=== PATIENT | male | born 1990 | race Hispanic/Latino ===

== ENCOUNTER 2023-10-08 17:01 | Emergency (ER) | payer SELFPAY ==
[2023-10-08 17:09] VITALS: BP 133/91
[2023-10-08] MEDS: TYLENOL 1000 MG PO (17:21)
[2023-10-08 17:50] LABS: % Basophils 0.2 % (0-2); % Immature Granulocytes 0.5 % (0-0.5); % Monocytes 10.2 % (1.7-9.3); % Neutrophils 75.1 % (42.2-75.2); Absolute Lymphocytes 0.9 10^3/uL (1.2-3.4); Absolute Monocytes 0.7 10^3/uL (0.1-0.6); Hematocrit 46.9 % (39.0-52.0); Hemoglobin 16.5 g/dL (13.0-18.0); Mean Corp Hgb Conc. 35.2 g/dL (33.0-37.0); Mean Corpuscular Hgb 31.3 pg (27.0-31.0); Mean Platelet Volume 8.9 fL (7.4-10.4); Nucleated Red Blood Cells % 0 % (-); Platelet Count 205 10^3/uL (130-400); Red Blood Cell Count 5.27 10^6/uL (4.70-6.10); Red Cell Dist. Width 11.7 % (11.5-14.5); White Blood Cell Count 6.7 10^3/uL (4.8-10.8)
[2023-10-08 18:03] LABS: ALT (SGPT) 17 U/L (0-50); AST (SGOT) 21 U/L (17-59); Albumin 4.3 g/dl (3.5-5.0); Alkaline Phosphatase 69 U/L (38-126); Blood Urea Nitrogen 18 mg/dl (9-20); Calcium 9.3 mg/dl (8.4-10.2); Carbon Dioxide 25 mmol/L (22-30); Chloride 100 mmol/L (98-107); Glucose 103 mg/dl (70-99); Potassium 3.9 mmol/L (3.5-5.1); Sodium 136 mmol/L (135-145); Total Bilirubin 0.7 mg/dl (0.2-1.3); Total Protein 7.1 g/dl (6.3-8.2); eGFR > 60.00
[2023-10-08 18:16] LABS: COVID-19 Antigen Negative (Negative)
--- NOTE | 2023-10-08 19:42 | ED.GENMED ---
History of Present Illness
General
Chief Complaint: Fever
Source: patient
Exam Limitations: none
Time Seen by Provider: 10/08/23 18:12
Nursing documentation reviewed up to this point in time: agreed with
Travel History
Have you had any contact with someone who has COVID-19?: No
Do you have any symptoms of coronavirus? Fever > 100 degrees, chills, cough, shortness of breath, sore throat, loss of taste or smell, muscle aches, or headache?: Yes
Symptoms:: fever
History of Present Illness
History of Present Illness:
33 yo male states he started with cough, fever 3 days ago, also chest hurts when he coughs. No know sick contacts. Denies n/v/d/c.
Past History
Past History
ED Past Medical History: None
Social History
Tobacco: Non-smoker
Personal: Single
Living: with family
Review of Systems
Review of Systems
Allergies reviewed?: Yes
All Other Systems: ROS reviewed and negative except as documented in HPI and ROS
Constitutional: Reports fever and fatigue
EENT: Denies sore throat
Respiratory: Reports cough; Denies trouble breathing
Cardiac: Reports chest pain
ABD/GI: Denies abdominal pain, nausea, vomiting, diarrhea or anorexia
: Denies dysuria
Musculoskeletal: Reports no symptoms
Skin: Reports no symptoms
Neurological: Reports no symptoms
Phy Exam
Physical Exam
Physical Exam:
GENERAL: No acute distress. A&Ox3.
CONSTITUTIONAL: T 102.6
EYES: PERRL, conjunctivae normal
Neck: Supple
ENMT: moist mucus membranes, Pharynx nl, TMs normal
RESPIRATORY: Regular respirations, nonlabored, lungs clear. Occasional cough
CARDIOVASCULAR: Regular rate and rhythm, no murmurs, no rubs. Tachycardic
GI: Soft, nontender, normal BS
MUSCULOSKELETAL: Moves with ease. Well perfused.
SKIN: Warm, moist, normal
PSYCH: Normal mood and affect. Well kept, interactive and appropriate
NEUROLOGIC: Awake, alert and oriented. No focal neurological deficits
Course
Orders/Labs/Results
Orders:
Orders
10/08/23 17:16
Acetaminophen [Tylenol] 1,000 mg .ROUTE .STK-MED ONE
10/08/23 17:20
Acetaminophen [Tylenol] 1,000 mg PO NOW STA
10/08/23 17:31
CBC/With Diff [Complete Blood Count/With Diff] Urgent
COVID-19 Antigen Urgent
Source: Nasal Swab
Comprehensive Metabolic Panel Urgent
Influenza A+B Rapid Molecular Urgent
JOCELINE Source: Nasal Swab
Specimen Description:
Abnormal Lab Results
10/08/23
17:31
MCH 31.3 H pg
(27.0-31.0)
Absolute Lymphs (auto) 0.9 L 10^3/uL
(1.2-3.4)
Absolute Monos (auto) 0.7 H 10^3/uL
(0.1-0.6)
Lymphocytes % 14.0 L %
(20.5-51.1)
Monocytes % 10.2 H %
(1.7-9.3)
Glucose 103 H mg/dl
(70-99)
10/08/23 17:31
10/08/23 17:31
Vital Signs
Initial and Last Documented VS:
Initial Vital Signs
Temp Pulse Resp BP Pulse Ox
102.6 F H 123 18 133/91 96
10/08/23 17:09 10/08/23 17:09 10/08/23 17:09 10/08/23 17:09 10/08/23 17:09
Last Documented Vital Signs
Temp Pulse Resp BP Pulse Ox
101.2 F H 123 18 133/91 96
10/08/23 18:21 10/08/23 17:09 10/08/23 17:09 10/08/23 17:09 10/08/23 17:09
MDM/Problems Addressed
Differential Diagnosis Includes:
Covid, Influenza, Viral URI, PNA
MDM/Problems Addressed:
33 yo male states he started with cough, fever 3 days ago, also chest hurts when he coughs. No know sick contacts. Denies n/v/d/c.
Temp 102.6
NAD
Lungs CTA
Temp 101.2 at discharge after Tylenol
*Critical Care Note
Total Time (30-74mins, 75-104mins- exclusive of procedures): Not Applicable
ED Attending Note
-
Portions of this chart may have been created with voice recognition software.� Occasional wrong word or��sound alike� substitutions may have occurred due to the inherent limitations of voice recognition software.
Discharge Plan
Departure
Patient Disposition: Home (Routine Discharge)
Date of Disposition: 10/08/23
Time of Disposition: 18:19
Patient with high blood pressure during this ER visit?: No
Condition: Fair
Covid-19: Negative COVID-19
Discharge Problem:
Influenza A
Instructions: Flu, Adult (DC), Fever, Adult (DC)
Stand Alone Forms: Return to Work
Activity Restrictions/Additional Instructions:
As we discussed, you have the flu. No work until you are at least 24 hours fever free.
Tylenol and ibuprofen as needed for body aches, fever
Drink plenty of fluids
Interventions
Interventions:
*Nursing Disposition Last Done: 10/08/23 18:55
ED- Neurological Assessment Last Done: 10/08/23 17:45
ED-Skin Assessment Last Done: 10/08/23 17:45
Discharge Date and Time
Discharge Date/Time: 10/08/23 18:55
== END 2023-10-08 18:55 | disposition home or self-care (01) ==
LOC: EMR 17:01
PROVIDERS: EMERGENCY PHYSICIAN Emergency Medicine
DX: J10.1 Influenza due to other identified influenza virus with other respiratory manifestations (principal); Z11.52 Encounter for screening for COVID-19
CPT/HCPCS: 99283; 80053; 85025; 87502; 87811